=== PATIENT | male | born 2000 | race Two or more races ===

== ENCOUNTER 2024-11-03 01:49 | Emergency (ER) | payer BC, MEDICAID ==
[~2024-11-03] VITALS: Ht 180.3 cm; Wt 86.4 kg
[2024-11-03 01:56] VITALS: TEMP 98.1
[2024-11-03 02:18] VITALS: BP 129/95; PULSE 71; RESP 16; O2SAT 99
[2024-11-03] MEDS ORDERED: EMTR1TAB53 PO (02:22)
[2024-11-03] MEDS ORDERED: DOLU50TA PO (02:22)
== END 2024-11-03 02:51 | disposition home or self-care (01) ==
LOC: EMS 01:49
DX: Z29.81 Encounter for HIV pre-exposure prophylaxis (principal); Z79.624 Long term (current) use of inhibitors of nucleotide synthesis
CPT/HCPCS: 87389; 99283